=== PATIENT | female | born 1975 | race American Indian/Alaskan Native ===

== ENCOUNTER 2016-12-27 21:25 | Emergency (ER) | payer OTHER, MEDICARE ==
[2016-12-27] MEDS ORDERED: Sodium Chloride 0.9% 1,000 ML IV ONE ×2 (21:38→23:03)
[2016-12-27] MEDS ORDERED: HYDROmorphone 2 MG/ML Syringe IVPUSH ONE (21:38)
[2016-12-27] MEDS ORDERED: Sodium Chloride 0.9% 2.5 ML Syringe FLUSH PRN (21:38)
[2016-12-27] MEDS ORDERED: Ondansetron 4 MG/2 ML SDV IVPUSH ONE (21:38)
[2016-12-27] MEDS ORDERED: Sodium Chloride 0.9% 10 ML Syringe FLUSH PRN (21:38)
--- NOTE | 2016-12-27 21:44 | EDM.PDOC ---
ED HPI DIABETIC EMERGENCY - General Chief Complaint: Diabetic Complaint Stated Complaint: PT HAS HIGH BLOOD SUGAR LEVEL Time Seen by Provider: 12/27/16 21:33 - History of Present Illness INITIAL COMMENTS - FREE TEXT/NARRATIVE: HISTORY AND PHYSICAL: History of present illness: The patient is a 41-year-old female with a history of diabetes insulin requiring as well as Crohn's disease who presents complaining that her sugar has been running very high. The patient was admitted for hospital November 28- of this year for lower abdominal pain and CT scan of the abdomen and pelvis at that time which was negative. Her blood sugar was high at that time in the 700s with an elevated hemoglobin A1c and she saw the diabetic counselor and her meds were adjusted. Upon her discharge she was taking NovoLog 15 units 3 times a day and Lememir 40 units at bedtime. She has since followed up with her provider at the [facility] [place] and last saw him Tuesday, 5 days ago, and had her meds adjusted to Levemir 35 units at bedtime and Novolog 30 units 4 times a day.. The patient states her blood sugar has still been running very high. She states that she takes prednisone chronically for her Crohn's disease and is not on other maintenance treatments for that and as a result it alters her blood sugars. Patient complains of some vague diffuse abdominal pain and vomiting and has had polyuria and polydipsia but no hematuria dysuria or flank pain. She has no chest pain or shortness of breath no fevers or chills. She normally has loose stools with her Crohn's and that is not new or different for her. She has not seen a dispensing optician recently and is trying to get into see one about her Crohn's. She has had surgical resection of some of her small bowel with her Crohn's but does not feel distended or bloated. The patient also states that she was on [place] for pain and it was recently switched to oxycodone 10 mg every 6 hours by her provider. Review of systems: As per history of present illness and below otherwise all systems reviewed and negative. Past medical history: As per history of present illness and as reviewed below otherwise noncontributory. Surgical history: As per history of present illness and as reviewed below otherwise noncontributory. Social history: No reported history of drug or alcohol abuse. Family history: As per history of present illness and as reviewed below otherwise noncontributory. Physical exam: General: Well-developed well-nourished female who is nontoxic and vital signs have been reviewed by me. She moves easily in the ED. I do not smell any acetone on her breath HEENT: Atraumatic, normocephalic, pupils reactive, negative for conjunctival pallor or scleral icterus, mucous membranes tacky, throat clear, neck supple, nontender, trachea midline. Lungs: Clear to auscultation, breath sounds equal bilaterally, chest nontender. Heart: S1S2, regular, negative for clicks, rubs, or JVD. Abdomen: Soft, nondistended, minimal diffuse tenderness in the midabdomen and bowel sounds are hyperactive and there is no rebound or guarding Negative for masses or hepatosplenomegaly. Negative for costovertebral tenderness. Pelvis: Stable nontender. Genitourinary: Deferred. Rectal: Deferred. Extremities: Atraumatic, negative for cords or calf pain. Neurovascular unremarkable. Neuro: Awake, alert, oriented. Cranial nerves II through XII unremarkable. Cerebellum unremarkable. Motor and sensory unremarkable throughout. Exam nonfocal. Diagnostics: CBC CMP amylase lipase serum ketones [employer]: IV fluids Zofran dilaudid insulin 2315: Patient is very comfortable in the room and is reading and I discussed all testing results with her as well as my conversation with Dr. Bradley at 22:55 PM. She and I discussed at length is that her current pain management program with oxycodone and the use of prednnor helping to solve her hyperglycemia. She currently is not acidotic although she is hyperglycemic with a blood sugar of 589. I discussed management of this patient with the hospitalist and possible admission for hyperglycemia and he feels that the patient can be managed as an outpatient and truly needs better medication adjustment on all fronts in order to achieve better glucose control. The patient states she follows at [facility] and she can try to followup there but she also has a clinic appointment with Dr. Park, who helps to care for her when she was admitted last month, and that appointment is next week. I advised her to call the clinic and try to move that appointment up to this week and advised her to continue her home medication dosing as well as sliding scale coverage of her elevated glucose. She is aware of my concerns with her prednisone and oxycodone use and acknowledges those and we'll discuss those with her provider. He is aware of reasons to return to the ED and we will continue finishing her IV fluids and reevaluate her Accu-Chek. 2343: Repeat Accu-Chek is 331. We'll plan on discharge home Impression: Hyperglycemia with history of poorly controlled diabetes improving, Crohn's disease Definitive disposition and diagnosis as appropriate pending reevaluation and review of above. - Related Data Allergies/ADRs: Allergies Allergy/AdvReac Type Severity Reaction Status Date / Time haloperidol [From Haldol] Allergy Cannot Verified 12/27/16 21:34 Remember haloperidol lactate Allergy Cannot Verified 12/27/16 21:34 [From Haldol] Remember ketorolac tromethamine Allergy Seizure Verified 12/27/16 21:34 [From Toradol] morphine Allergy Itching Verified 12/27/16 21:34 tramadol Allergy Seizure Verified 12/27/16 21:34 Home Meds: Home Meds Insulin Aspart [NovoLOG] 30 unit SUBCUT TIDAC 05/26/16 [History] Insulin Detemir [Levemir] 75 unit SUBCUT BID 05/26/16 [History] FLUoxetine [PROzac] 60 mg PO ACBREAKFAST 07/05/16 [History] traZODone 150 mg PO BEDTIME 11/28/16 [History] Nystatin [Nystatin Crm] 1 millunits TOP QID #1 tube 11/30/16 [Rx] oxyCODONE 10 mg PO Q6H 12/27/16 [History] predniSONE [Prednisone] 30 mg PO BID 12/27/16 [History] Past Medical History HEENT History: Reports: None Cardiovascular History: Reports: None Respiratory History: Reports: None Gastrointestinal History: Reports: Bowel obstruction, GERD, Other (see below) Other Gastrointestinal History: crohns Genitourinary History: Reports: Renal calculus Other Genitourinary History: Intermittent yeast infections 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 Musculoskeletal History: Reports: None Neurological History: Reports: None Psychiatric History: Reports: Depression, PTSD, Suicide attempt, Suicidal ideation Other Psychiatric History: Pt takes Prozac and Trazadone. Endocrine/Metabolic History: Reports: Diabetes, type II Immunologic History: Reports: Other (see below) Other Immunologic History: Hx Hepatits C. Dermatologic History: Reports: Other (see below) Other Dermatologic History: Dermatitis. - Infectious Disease History Infectious Disease History: Reports: Hepatitis C Other Infectious Disease History: no Hep C treatment - Past Surgical History HEENT Surgical History: Reports: None GI Surgical History: Reports: Appendectomy, Cholecystectomy Female Surgical History: Reports: Hysterectomy Endocrine Surgical History: Reports: None Musculoskeletal Surgical History: Reports: Knee replacement, Shoulder surgery Social & Family History - Family History Family Medical History: Noncontributory HEENT: Reports: None Other GI Family History: Chron's disease-mother Endocrine/Metabolic: Reports: Diabetes, type II - Tobacco Use Smoking Status *Q: Current Every Day Smoker Years of Tobacco use: 23 Packs/Tins Daily: 0.5 Used Tobacco, but Quit: No Second Hand Smoke Exposure: Yes - Caffeine Use Caffeine Use: Reports: Soda - Alcohol Use Days Per Week of Alcohol Use: 3 Number of Drinks Per Day: 1 Total Drinks Per Week: 3 - Recreational Drug Use Recreational Drug Use: No Drug Use in Last 12 Months: Yes Recreational Drug Type: Reports: Marijuana/Hashish ED ROS GENERAL - Review of Systems Review Of Systems: ROS reveals no pertinent complaints other than HPI. ED EXAM GENERAL NO PERIP PULSE - Physical Exam Exam: See Below (See dictation) Course - Vital Signs Last Recorded V/S: Last Vital Signs Temp 36.8 C 12/27/16 21:34 Pulse 80 12/27/16 23:06 Resp 16 12/27/16 23:06 BP 146/93 H 12/27/16 23:06 Pulse Ox 97 12/27/16 23:06 - Orders/Labs/Meds Orders: Active Orders 24 hr Category Date Time Status Sodium Chloride 0.9% [Normal Saline] 1,000 ml Med 12/27/16 23:03 Active IV STAT Sodium Chloride 0.9% [Saline Flush] Med 12/27/16 21:38 Active 10 ml FLUSH ASDIRECTED PRN Sodium Chloride 0.9% [Saline Flush] Med 12/27/16 21:38 Active 2.5 ml FLUSH ASDIRECTED PRN Saline Lock Insert [OM.PC] Stat Oth 12/27/16 21:38 Ordered Medication Orders Sodium Chloride (Normal Saline) 1,000 mls @ 999 mls/hr IV STAT ONE Stop: 12/28/16 00:03 Last Admin: 12/27/16 23:05 Dose: 999 mls/hr Sodium Chloride (Saline Flush) 10 ml FLUSH ASDIRECTED PRN PRN Reason: Keep Vein Open Sodium Chloride (Saline Flush) 2.5 ml FLUSH ASDIRECTED PRN PRN Reason: Keep Vein Open Labs: Laboratory Tests 12/27/16 12/27/16 12/27/16 Range/Units 21:41 21:53 21:53 WBC 7.41 (4.0-11.0) K/uL RBC 5.26 (4.30-5.90) M/uL Hgb 16.1 H (12.0-16.0) g/dL Hct 45.5 (36.0-46.0) % MCV 86.5 (80.0-98.0) fL MCH 30.6 (27.0-32.0) pg MCHC 35.4 (31.0-37.0) g/dL RDW Std Deviation 42.5 (28.0-62.0) fl RDW Coeff of Tra 14 (11.0-15.0) % Plt Count 225 (150-400) K/uL MPV 10.40 (7.40-12.00) fL Neut % (Auto) 54.0 (48.0-80.0) % Lymph % (Auto) 37.0 (16.0-40.0) % [place] % (Auto) 7.3 (0.0-15.0) % Eos % (Auto) 1.3 (0.0-7.0) % Baso % (Auto) 0.4 (0.0-1.5) % Neut # 4.0 (1.4-5.7) K/uL Lymph # 2.7 H (0.6-2.4) K/uL [place] # 0.5 (0.0-0.8) K/uL Eos # 0.1 (0.0-0.7) K/uL Baso # 0.0 (0.0-0.1) K/uL Nucleated RBC % 0.0 /100WBC Nucleated RBCs # 0 K/uL Sodium 133 L (136-146) mmol/L Potassium 4.4 (3.5-5.1) mmol/L Chloride 102 (98-110) mmol/L Carbon Dioxide 17 L (21-31) mmol/L BUN 16 (6.0-23.0) mg/dL Creatinine 1.1 (0.6-1.5) mg/dL Est Cr Clr Drug Dosing 64.28 mL/min Estimated GFR (MDRD) 55.3 ml/min Glucose 589 H* (60-110) mg/dL Calcium 9.5 (8.8-10.8) mg/dL Total Bilirubin 0.7 (0.1-1.5) mg/dL AST 54 H (5-40) IU/L ALT 69 H (8-54) IU/L Alkaline Phosphatase 211 H (40-150) Total Protein 8.8 H (6.0-8.0) g/dL Albumin 4.1 (3.5-5.0) g/dL Globulin 4.7 H (2.0-3.5) g/dL Albumin/Globulin Ratio 0.9 L (1.3-2.8) Amylase 43 (10-90) U/L Lipase 59 (7-80) U/L Urine Color YELLOW Urine Appearance CLEAR Urine pH 6.0 (5.0-8.0) Ur Specific [place] <= 1.005 (1.001-1.035) Urine Protein NEGATIVE (NEGATIVE) mg/dL Urine Glucose (UA) >=1000 (NEGATIVE) mg/dL Urine Ketones 15 H (NEGATIVE) mg/dL Urine Occult Blood NEGATIVE (NEGATIVE) Urine Nitrite NEGATIVE (NEGATIVE) Urine Bilirubin NEGATIVE (NEGATIVE) Urine Urobilinogen 0.2 (<2.0) EU/dL Ur Leukocyte Esterase NEGATIVE (NEGATIVE) Urine RBC 0-2 (0-2/HPF) Urine WBC 0-2 (0-5/HPF) Ur Epithelial Cells RARE (NONE-FEW) Urine Bacteria RARE (NEGATIVE) Ketones (NEG) 12/27/16 Range/Units 21:53 WBC (4.0-11.0) K/uL RBC (4.30-5.90) M/uL Hgb (12.0-16.0) g/dL Hct (36.0-46.0) % MCV (80.0-98.0) fL MCH (27.0-32.0) pg MCHC (31.0-37.0) g/dL RDW Std Deviation (28.0-62.0) fl RDW Coeff of Tra (11.0-15.0) % Plt Count (150-400) K/uL MPV (7.40-12.00) fL Neut % (Auto) (48.0-80.0) % Lymph % (Auto) (16.0-40.0) % [place] % (Auto) (0.0-15.0) % Eos % (Auto) (0.0-7.0) % Baso % (Auto) (0.0-1.5) % Neut # (1.4-5.7) K/uL Lymph # (0.6-2.4) K/uL [place] # (0.0-0.8) K/uL Eos # (0.0-0.7) K/uL Baso # (0.0-0.1) K/uL Nucleated RBC % /100WBC Nucleated RBCs # K/uL Sodium (136-146) mmol/L Potassium (3.5-5.1) mmol/L Chloride (98-110) mmol/L Carbon Dioxide (21-31) mmol/L BUN (6.0-23.0) mg/dL Creatinine (0.6-1.5) mg/dL Est Cr Clr Drug Dosing mL/min Estimated GFR (MDRD) ml/min Glucose (60-110) mg/dL Calcium (8.8-10.8) mg/dL Total Bilirubin (0.1-1.5) mg/dL AST (5-40) IU/L ALT (8-54) IU/L Alkaline Phosphatase (40-150) Total Protein (6.0-8.0) g/dL Albumin (3.5-5.0) g/dL Globulin (2.0-3.5) g/dL Albumin/Globulin Ratio (1.3-2.8) Amylase (10-90) U/L Lipase (7-80) U/L Urine Color Urine Appearance Urine pH (5.0-8.0) Ur Specific [place] (1.001-1.035) Urine Protein (NEGATIVE) mg/dL Urine Glucose (UA) (NEGATIVE) mg/dL Urine Ketones (NEGATIVE) mg/dL Urine Occult Blood (NEGATIVE) Urine Nitrite (NEGATIVE) Urine Bilirubin (NEGATIVE) Urine Urobilinogen (<2.0) EU/dL Ur Leukocyte Esterase (NEGATIVE) Urine RBC (0-2/HPF) Urine WBC (0-5/HPF) Ur Epithelial Cells (NONE-FEW) Urine Bacteria (NEGATIVE) Ketones NEGATIVE (NEG) Meds: Medications Generic Name Dose Route Start Last Admin Trade Name Freq PRN Reason Stop Dose Admin Sodium Chloride 1,000 mls @ 999 mls/hr 12/27/16 23:03 12/27/16 23:05 Normal Saline IV 12/28/16 00:03 999 mls/hr STAT ONE Administration Sodium Chloride 10 ml 12/27/16 21:38 Saline Flush FLUSH ASDIRECTED PRN Keep Vein Open Sodium Chloride 2.5 ml 12/27/16 21:38 Saline Flush FLUSH ASDIRECTED PRN Keep Vein Open Discontinued Medications Generic Name Dose Route Start Last Admin Trade Name Freq PRN Reason Stop Dose Admin Hydromorphone HCl 0.5 mg 12/27/16 21:38 12/27/16 22:05 Dilaudid IVPUSH 12/27/16 21:39 0.5 mg ONETIME ONE Administration Sodium Chloride 1,000 mls @ 999 mls/hr 12/27/16 21:38 12/27/16 22:02 Normal Saline IV 12/27/16 22:38 999 mls/hr STAT ONE Administration Insulin Human Regular 15 unit 12/27/16 22:41 12/27/16 22:46 Novolin R SUBCUT 12/27/16 22:42 15 units ONETIME ONE Administration Protocol Ondansetron HCl 4 mg 12/27/16 21:38 12/27/16 22:03 Zofran IVPUSH 12/27/16 21:39 4 mg ONETIME ONE Administration Departure - Departure Time of Disposition: 23:42 Disposition: Home, Self-Care 01 Condition: fair Clinical Impression: Hyperglycemia Referrals: PCP,None [Primary Care Provider] - Forms: ED Department Discharge Additional Instructions: The following information is given to patients seen in the emergency department who are being discharged to home. This information is to outline your options for follow-up care. We provide all patients seen in our emergency department with a follow-up referral. The need for follow-up, as well as the timing and circumstances, are variable depending upon the specifics of your emergency department visit. If you don't have a primary care physician on staff, we will provide you with a referral. We always advise you to contact your personal physician following an emergency department visit to inform them of the circumstance of the visit and for follow-up with them and/or the need for any referrals to a consulting specialist. The emergency department will also refer you to a specialist when appropriate. This referral assures that you have the opportunity for followup care with a specialist. All of these measure are taken in an effort to provide you with optimal care, which includes your followup. Under all circumstances we always encourage you to contact your private physician who remains a resource for coordinating your care. When calling for followup care, please make the office aware that this follow-up is from your recent emergency room visit. If for any reason you are refused follow-up, please contact the [facility] emergency department at and ask to speak to the emergency department charge nurse. [facility] Primary care- Internal Medicine and Family [address] [address] Please continue all other home medications and also cover your blood sugar with sliding scale per your usual regimen. Please call our clinic tomorrow and try to move your appointment to a sooner time with Dr. Park. Please watch her diet and return to ER as needed as discussed. Please also try to connect with your provider at the [facility] service - My Orders Last 24 Hours: My Active Orders 12/27/16 21:38 Sodium Chloride 0.9% [Saline Flush] 10 ml FLUSH ASDIRECTED PRN Sodium Chloride 0.9% [Saline Flush] 2.5 ml FLUSH ASDIRECTED PRN Saline Lock Insert [OM.PC] Stat 12/27/16 23:03 Sodium Chloride 0.9% [Normal Saline] 1,000 ml IV STAT - Assessment/Plan Last 24 Hours: My Active Orders 12/27/16 21:38 Sodium Chloride 0.9% [Saline Flush] 10 ml FLUSH ASDIRECTED PRN Sodium Chloride 0.9% [Saline Flush] 2.5 ml FLUSH ASDIRECTED PRN Saline Lock Insert [OM.PC] Stat 12/27/16 23:03 Sodium Chloride 0.9% [Normal Saline] 1,000 ml IV STAT
[2016-12-27] MEDS ORDERED: Insulin Regular, Human 100 Units/ML 10 ML Vial SUBCUT ONE (22:41)
[2016-12-28 00:13] VITALS: BP 142/81
== END 2016-12-28 00:05 | disposition home or self-care (01) ==
LOC: MW.ED 21:25
DX: R73.9 Hyperglycemia, unspecified (principal); K21.9 Gastro-esophageal reflux disease without esophagitis; F17.210 Nicotine dependence, cigarettes, uncomplicated; Z88.5 Allergy status to narcotic agent; Z88.6 Allergy status to analgesic agent; Z88.8 Allergy status to other drugs, medicaments and biological substances; Z79.899 Other long term (current) drug therapy; Z90.49 Acquired absence of other specified parts of digestive tract; Z90.89 Acquired absence of other organs
CPT/HCPCS: 36415; 80053; 81001; 82009; 82150; 82962; 83690; 85025; 96361; 96372; 96374; 96375; 99284; J1170; J2405; J7040; J1815-GY

== ENCOUNTER 2017-04-11 00:12 | Emergency (ER) | payer OTHER, MEDICARE ==
[2017-04-11] MEDS ORDERED: Sodium Chloride 0.9% 1,000 ML IV ONE (00:25)
--- NOTE | 2017-04-11 00:26 | EDM.PDOC ---
ED HPI GENERAL MEDICAL PROBLEM - General Chief Complaint: Abdominal Pain Stated Complaint: ABDOMINAL PAIN AND LEFT ARM PAIN Time Seen by Provider: 04/11/17 00:24 Source of Information: Reports: Patient - History of Present Illness INITIAL COMMENTS - FREE TEXT/NARRATIVE: HISTORY AND PHYSICAL: History of present illness: []: Is a 41-year-old female who comes in today with abdominal pain. 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 I have obtained records from [facility] for review, stent placed with good flow and resolution of stenosis Patient has diffuse abdominal pain she rates 7 out of 10 nonradiating pain is mainly epigastric to left upper quadrant No fever nausea vomiting chills sweats no chest pain shortness breath headache dizziness palpitation bowel or urine symptoms She did complain of some left arm pain this is secondary to hematoma as it did use left wrist approach she's had pain associated with the hematoma which has resulted in a couple of more admissions at [facility] procedure however this does not seem to bother her at night in the interum during work-up i was able to listen to patient visiting [facility] her sister and exhibited no pain behavior, as well as laughing and discussing exploits at a recent trip to a bar....suspicious for drug seeking behaviors Patient has pain medicine at her disposal to use as directed follow-up with primary care for continued management History of Crohn's disease as well as partial hysterectomy recent surgical history as above Review of systems: As per history of present illness and below otherwise all systems reviewed and negative. Past medical history: As per history of present illness and as reviewed below otherwise noncontributory. Surgical history: As per history of present illness and as reviewed below otherwise noncontributory. Social history: No reported history of drug or alcohol abuse. Family history: As per history of present illness and as reviewed below otherwise noncontributory. Physical exam: HEENT: Atraumatic, normocephalic, pupils reactive, negative for conjunctival pallor or scleral icterus, mucous membranes moist, throat clear, neck supple, nontender, trachea midline. Lungs: Clear to auscultation, breath sounds equal bilaterally, chest nontender. Heart: S1S2, regular, negative for clicks, rubs, or JVD. Abdomen: Soft, nondistended, diffusely tender Negative for masses or hepatosplenomegaly. Negative for costovertebral tenderness. Pelvis: Stable nontender. Genitourinary: Deferred. Rectal: Deferred. Extremities: Atraumatic, negative for cords or calf pain. Neurovascular unremarkable. Neuro: Awake, alert, oriented. Cranial nerves II through XII unremarkable. Cerebellum unremarkable. Motor and sensory unremarkable throughout. Exam nonfocal. Diagnostics: []lab as below ekg Flat and upright abdomen Therapeutics: []1 L NS bolus Insulin 5 units subcutaneous Impression: []abdominal pain crohns Dz DM uncontrolled Definitive disposition and diagnosis as appropriate pending reevaluation and review of above. Middle Abdomen Pain Score (Numeric/FACES): 8 - Related Data Allergies Allergy/AdvReac Type Severity Reaction Status Date / Time aripiprazole [From Abilify] Allergy Shaking Verified 02/27/17 15:55 MDT haloperidol [From Haldol] Allergy Cannot Verified 12/27/16 21:34 Remember haloperidol lactate Allergy Cannot Verified 12/27/16 21:34 [From Haldol] Remember ketorolac tromethamine Allergy Seizure Verified 12/27/16 21:34 [From Toradol] metoclopramide [From Reglan] Allergy Hives Verified 02/27/17 15:55 MDT morphine Allergy Itching Verified 12/27/16 21:34 tramadol Allergy Seizure Verified 12/27/16 21:34 Home Meds: Home Meds Insulin Aspart [NovoLOG] 10 unit SUBCUT TIDAC 05/26/16 [History] Insulin Detemir [Levemir] 45 unit SUBCUT BID 05/26/16 [History] FLUoxetine [PROzac] 40 mg PO ACBREAKFAST 07/05/16 [History] traZODone 150 mg PO BEDTIME 11/28/16 [History] Nystatin [Nystatin Crm] 1 millunits TOP QID #1 tube 11/30/16 [Rx] Ondansetron [Zofran ODT] 4 mg PO Q6H PRN #10 tab.dis 02/27/17 [Rx] Acetaminophen/HYDROcodone [Bergoo 325-5 MG] 1 tab PO Q8H PRN 04/11/17 [History] Clopidogrel [Plavix] 0 mg PO DAILY 04/11/17 [History] Sertraline [Zoloft] 50 mg PO DAILY 04/11/17 [History] Past Medical History HEENT History: Reports: None Cardiovascular History: Reports: None Respiratory History: Reports: None Gastrointestinal History: Reports: Bowel Obstruction, GERD, Other (See Below) Other Gastrointestinal History: crohns Genitourinary History: Reports: Renal Calculus Other Genitourinary History: Intermittent yeast infections [employer] History: Reports: Other (See Below) Other OB/BYN History: Partial hysterectomy. Musculoskeletal History: Reports: None Neurological History: Reports: None Psychiatric History: Reports: Depression, PTSD, Suicide Attempt, Suicidal Ideation Other Psychiatric History: Pt takes Prozac and Trazadone. Endocrine/Metabolic History: Reports: Diabetes, Type II Immunologic History: Reports: Other (See Below) Other Immunologic History: Hx Hepatits C. Dermatologic History: Reports: Other (See Below) Other Dermatologic History: Dermatitis. - Infectious Disease History Infectious Disease History: Reports: Hepatitis C Other Infectious Disease History: no Hep C treatment - Past Surgical History HEENT Surgical History: Reports: None Musculoskeletal Surgical History: Reports: Knee Replacement, Shoulder Surgery Social & Family History - Family History Family Medical History: Noncontributory HEENT: Reports: None Other GI Family History: Chron's disease-mother Endocrine/Metabolic: Reports: Diabetes, type II - Tobacco Use Smoking Status *Q: Current Every Day Smoker Years of Tobacco use: 20 Packs/Tins Daily: 0.5 Used Tobacco, but Quit: No Second Hand Smoke Exposure: Yes - Caffeine Use Caffeine Use: Reports: None - Alcohol Use Days Per Week of Alcohol Use: 3 Number of Drinks Per Day: 1 Total Drinks Per Week: 3 - Recreational Drug Use Recreational Drug Use: No Drug Use in Last 12 Months: Yes Recreational Drug Type: Reports: Marijuana/Hashish ED ROS GENERAL - Review of Systems Review Of Systems: ROS reveals no pertinent complaints other than HPI. ED EXAM, GENERAL - Physical Exam Exam: See Below Course - Vital Signs Last Recorded V/S: Last Vital Signs Temp 36.7 C 04/11/17 00:19 Pulse 110 H 04/11/17 00:19 Resp 20 04/11/17 00:19 BP 138/99 H 04/11/17 00:19 Pulse Ox 96 04/11/17 00:19 - Orders/Labs/Meds Orders: Active Orders 24 hr Category Date Time Status EKG Documentation Completion [RC] STAT Care 04/11/17 00:21 Active Abdomen 2V AP Flat Upright [CR] Stat Exams 04/11/17 01:34 Taken Chest 1V Frontal [CR] Stat Exams 04/11/17 00:21 Taken Labs: Laboratory Tests 04/11/17 04/11/17 04/11/17 Range/Units 00:25 00:25 00:25 WBC 8.11 (4.0-11.0) K/uL RBC 3.63 L (4.30-5.90) M/uL Hgb 11.5 L (12.0-16.0) g/dL Hct 34.1 L (36.0-46.0) % MCV 93.9 (80.0-98.0) fL MCH 31.7 (27.0-32.0) pg MCHC 33.7 (31.0-37.0) g/dL RDW Std Deviation 41.9 (28.0-62.0) fl RDW Coeff of Tra 13 (11.0-15.0) % Plt Count 308 (150-400) K/uL MPV 9.70 (7.40-12.00) fL Neut % (Auto) 47.7 L (48.0-80.0) % Lymph % (Auto) 35.3 (16.0-40.0) % [place] % (Auto) 14.1 (0.0-15.0) % Eos % (Auto) 2.2 (0.0-7.0) % Baso % (Auto) 0.7 (0.0-1.5) % Neut # (Auto) 3.9 (1.4-5.7) K/uL Lymph # (Auto) 2.9 H (0.6-2.4) K/uL [place] # (Auto) 1.1 H (0.0-0.8) K/uL Eos # (Auto) 0.2 (0.0-0.7) K/uL Baso # (Auto) 0.1 (0.0-0.1) K/uL Sodium 132 L (136-146) mmol/L Potassium 4.1 (3.5-5.1) mmol/L Chloride 97 L (98-110) mmol/L Carbon Dioxide 23 (21-31) mmol/L BUN 21 (6.0-23.0) mg/dL Creatinine 0.9 (0.6-1.5) mg/dL Est Cr Clr Drug Dosing 78.99 mL/min Estimated GFR (MDRD) > 60.0 ml/min Glucose 359 H (60-110) mg/dL POC Glucose (60-110) mg/dL Calcium 9.1 (8.8-10.8) mg/dL Total Bilirubin 0.5 (0.1-1.5) mg/dL AST 56 H (5-40) IU/L ALT 66 H (8-54) IU/L Alkaline Phosphatase 182 H (40-150) Troponin I < 0.10 (0.0-0.29) NG/ML Total Protein 7.8 (6.0-8.0) g/dL Albumin 3.8 (3.5-5.0) g/dL Globulin 4.0 H (2.0-3.5) g/dL Albumin/Globulin Ratio 1.0 L (1.3-2.8) Amylase 49 (10-90) U/L Lipase 31 (7-80) U/L 04/11/ Range/Units 00:40 WBC (4.0-11.0) K/uL RBC (4.30-5.90) M/uL Hgb (12.0-16.0) g/dL Hct (36.0-46.0) % MCV (80.0-98.0) fL MCH (27.0-32.0) pg MCHC (31.0-37.0) g/dL RDW Std Deviation (28.0-62.0) fl RDW Coeff of Tra (11.0-15.0) % Plt Count (150-400) K/uL MPV (7.40-12.00) fL Neut % (Auto) (48.0-80.0) % Lymph % (Auto) (16.0-40.0) % [place] % (Auto) (0.0-15.0) % Eos % (Auto) (0.0-7.0) % Baso % (Auto) (0.0-1.5) % Neut # (Auto) (1.4-5.7) K/uL Lymph # (Auto) (0.6-2.4) K/uL [place] # (Auto) (0.0-0.8) K/uL Eos # (Auto) (0.0-0.7) K/uL Baso # (Auto) (0.0-0.1) K/uL Sodium (136-146) mmol/L Potassium (3.5-5.1) mmol/L Chloride (98-110) mmol/L Carbon Dioxide (21-31) mmol/L BUN (6.0-23.0) mg/dL Creatinine (0.6-1.5) mg/dL Est Cr Clr Drug Dosing mL/min Estimated GFR (MDRD) ml/min Glucose (60-110) mg/dL POC Glucose 334 H (60-110) mg/dL Calcium (8.8-10.8) mg/dL Total Bilirubin (0.1-1.5) mg/dL AST (5-40) IU/L ALT (8-54) IU/L Alkaline Phosphatase (40-150) Troponin I (0.0-0.29) NG/ML Total Protein (6.0-8.0) g/dL Albumin (3.5-5.0) g/dL Globulin (2.0-3.5) g/dL Albumin/Globulin Ratio (1.3-2.8) Amylase (10-90) U/L Lipase (7-80) U/L Meds: Medications Discontinued Medications Generic Name Dose Route Start Last Admin Trade Name Freq PRN Reason Stop Dose Admin Hydromorphone HCl 1 mg 04/11/17 00:53 04/11/17 01:02 Dilaudid IVPUSH 04/11/17 00:54 1 mg ONETIME ONE Administration Sodium Chloride 1,000 mls @ 999 mls/hr 04/11/17 00:25 04/11/17 01:02 Normal Saline IV 04/11/17 01:25 999 mls/hr STAT ONE Administration Insulin Human Isoph/Insulin Regular 5 unit 04/11/17 01:26 04/11/17 01:41 Novolin 70-30 SUBCUT 04/11/17 01:27 Not Given ONETIME ONE Insulin Human Regular 5 unit 04/11/17 01:26 04/11/17 01:39 Novolin R SUBCUT 04/11/17 01:27 5 units ONETIME ONE Administration Protocol Ondansetron HCl 8 mg 04/11/17 00:53 04/11/17 01:02 Zofran IVPUSH 04/11/17 00:54 8 mg ONETIME ONE Administration Departure - Departure Time of Disposition: :31 Disposition: Home, Self-Care 01 Condition: Good Clinical Impression: Abdominal pain Qualifiers: Abdominal location: epigastric Qualified Code(s): R10.13 - Epigastric pain - Discharge Information Forms: ED Department Discharge Additional Instructions: Follow-up of [facility] in [place] for continued management Return if symptoms persist or worsen Follow-up with primary care within 2 weeks The following information is given to patients seen in the emergency department who are being discharged to home. This information is to outline your options for follow-up care. We provide all patients seen in our emergency department with a follow-up referral. The need for follow-up, as well as the timing and circumstances, are variable depending upon the specifics of your emergency department visit. If you don't have a primary care physician on staff, we will provide you with a referral. We always advise you to contact your personal physician following an emergency department visit to inform them of the circumstance of the visit and for follow-up with them and/or the need for any referrals to a consulting specialist. The emergency department will also refer you to a specialist when appropriate. This referral assures that you have the opportunity for follow-up care with a specialist. All of these measure are taken in an effort to provide you with optimal care, which includes your follow-up. Under all circumstances we always encourage you to contact your private physician who remains a resource for coordinating your care. When calling for follow-up care, please make the office aware that this follow-up is from your recent emergency room visit. If for any reason you are refused follow-up, please contact the [facility] emergency department at and asked to speak to the emergency department charge nurse. - My Orders Last 24 Hours: My Active Orders 04/11/17 00:21 EKG Documentation Completion [RC] STAT Chest 1V Frontal [CR] Stat 04/11/17 01:34 Abdomen 2V AP Flat Upright [CR] Stat - Assessment/Plan Last 24 Hours: My Active Orders 04/11/17 00:21 EKG Documentation Completion [RC] STAT Chest 1V Frontal [CR] Stat 04/11/17 01:34 Abdomen 2V AP Flat Upright [CR] Stat
[2017-04-11] MEDS ORDERED: Ondansetron 4 MG/2 ML SDV IVPUSH ONE (00:53)
[2017-04-11] MEDS ORDERED: HYDROmorphone 2 MG/ML Syringe IVPUSH ONE (00:53)
[2017-04-11 01:18] LABS: CHLORIDE,CL 97 mmol/L (98-110); SODIUM,NA 132 mmol/L (136-146)
[2017-04-11] MEDS ORDERED: Insulin Regular, Human 100 Units/ML 10 ML Vial SUBCUT ONE (01:26)
[2017-04-11] MEDS ORDERED: Insulin NPH/Insulin Regular,Human 70-30 100 Units/ML 10 ML Vial SUBCUT ONE (01:26)
[2017-04-11 02:49] VITALS: BP 121/78
--- NOTE | 2017-04-11 13:42 | CR ---
EXAM DATE: 04/11/17 PATIENT'S AGE: 41 Patient: PETEY RINCON Facility: [place], [place] Site . Site : 1975 Study: XRay Chest [id number]/26/2017 12:59:01 AM Ordering Physician: Dharmesh Medina Final Report: INDICATION: Chest pain. TECHNIQUE: Chest radiograph 1 view COMPARISON: 11/28/2016. FINDINGS: Cardiovascular and mediastinum: The heart silhouette is normal in size and morphology. The mediastinum is normal in appearance. Lungs and pleural spaces: Both lungs are unremarkable in appearance. No sign of pleural effusion seen. No pneumothorax is identified. Bones and soft tissues: 2 screws project at the left humeral head, unchanged. No displaced rib fracture. IMPRESSION: 1. No acute abnormality. Dictated by Kg Su MD @ 04/11/2017 1:03:34 AM Dictated by: Kg Su MD @ 04/11/2017 01:03:42 (Electronic Signature) Report Signed by Proxy. RADHA
--- NOTE | 2017-04-11 13:43 | CR ---
EXAM DATE: 04/11/17 PATIENT'S AGE: 41 Patient: PETEY RINCON Facility: [place], [place] Site . Site : 1975 Study: XRay Abdomen [id number]/26/2017 1:55:16 AM Ordering Physician: Dharmesh Medina Final Report: INDICATION: MID ADBOMINAL PAIN TECHNIQUE: Abdomen 3 view COMPARISON: None FINDINGS: Bowel: Nonobstructive bowel gas pattern. Moderate amount of stool. Soft tissues: Surgical clips within the right upper quadrant. Vascular stent in place left of midline at the L1-2 level. No sign of soft tissue mass. No suspicious calcifications. Bones: Unremarkable for age. IMPRESSION: Nonobstructive bowel gas pattern. Moderate amount of stool. Dictated by Earle Fischer MD @ 04/11/2017 1:57:47 AM Dictated by: Earle Fischer MD @ 04/11/2017 01:58:10 (Electronic Signature) Report Signed by Proxy. [facility]ITALSheldon
== END 2017-04-11 02:45 | disposition home or self-care (01) ==
LOC: MW.ED 00:12
DX: K50.90 Crohn's disease, unspecified, without complications (principal); E11.9 Type 2 diabetes mellitus without complications; K21.9 Gastro-esophageal reflux disease without esophagitis; F17.210 Nicotine dependence, cigarettes, uncomplicated; F32.9 Major depressive disorder, single episode, unspecified; Z88.5 Allergy status to narcotic agent; Z79.4 Long term (current) use of insulin; Z79.899 Other long term (current) drug therapy; Z87.442 Personal history of urinary calculi; Z90.710 Acquired absence of both cervix and uterus; Z96.659 Presence of unspecified artificial knee joint
CPT/HCPCS: 36415; 71010; 74020; 80053; 82150; 82962; 83690; 84484; 85025; 93005; 96361; 96372; 96374; 96375; 99284; J1170; J1815; J2405; J7040